=== PATIENT | male | born 1955 | race Caucasian/White ===

== ENCOUNTER 2018-06-16 15:05 | Inpatient (IN) | payer MEDICARE ==
[2018-06-16 15:44] VITALS: BP 144/71
[2018-06-16] MEDS ORDERED: Magnesium Hydroxide (MOM) 30 mL UDC PO PRN (16:04)
[2018-06-16 16:50] LABS: % BASOPHILS 3.5 % (0.0-2.0); % EOSINOPHILS 0.2 % (0.0-5.0); % LYMPHOCYTES 11.2 % (20.0-50.0); % NEUTROPHILS 81.1 % (40.0-80.0); BASOPHILE ABSOLUTE 0.3 Th/cumm (0-0.2); HEMATOCRIT 47.1 % (41.0-60); HEMOGLOBIN 15.9 gm/dL (12-16); MEAN CELL VOLUME 90.4 fl (80-99); MEAN CORPUSCULAR HEMOGLOBIN 30.4 pg (26.0-30.0); MEAN CORPUSCULAR HGB CONC 33.6 pg (28.0-36.0); MEAN PLATELET VOLUME 8.1 fl; MONOCYTE ABSOLUTE 0.4 Th/cmm (0.3-1.0); NEUTROPHILE ABSOLUTE 7.4 Th/cmm (1.8-8.0); PLATELET COUNT 225 Th/cmm (150-400); RED BLOOD COUNT 5.21 Mil/cmm (4.30-5.70); RED CELL DISTRIBUTION WIDTH 14.1 % (11.5-20.0); WHITE BLOOD COUNT 9.1 Th/cmm (4.8-10.8)
[2018-06-16 17:07] LABS: ALB/GLOB RATIO 1.4 (1.0-1.8); ALBUMIN 3.6 gm/dL (4.2-5.5); ALKALINE PHOSPHATASE 87 U/L (34-104); ANION GAP 11.2 (7.0-16.0); BILIRUBIN,TOTAL 1.1 mg/dL (0.3-1.0); BUN - UREA NITROGEN 15 mg/dL (7-25); CALCIUM SERUM 9.5 mg/dL (8.6-10.3); CARBON DIOXIDE 27.8 mEq/L (21.0-31.0); CHLORIDE 102 mEq/L (98-107); CREATININE - SERUM 0.8 mg/dL (0.7-1.3); GFR AFRICAN-AMERICAN > 60.0 ml/min (>90); GFR NON AFRICAN-AMERICAN > 60.0 ml/min; GLUCOSE 120 mg/dL (70-105); SGOT 35 U/L (13-39); SGPT/ALT 46 U/L (7-52); SODIUM SERUM 137 mEq/L (136-145); TOTAL PROTEIN,SERUM 6.2 gm/dL (6.0-8.3)
[2018-06-17] MEDS: Maalox 30 mL Cup PO PRN ×2 (00:20→17:58)
[2018-06-17] MEDS: Pantoprazole 40 mg/Packet PO SCH (06:42)
--- NOTE | 2018-06-17 08:22 | Diagnostic Imaging Report ---
Portable chest x-ray Time: 1640 History: Shortness of breath Allowing for portable technique the heart size is normal. There is a question of mild right basilar infiltrate. No hilar or mediastinal abnormalities. Bony thorax is intact. Impression: Question of mild right basilar infiltrate. Follow-up dictation recommended if clinically indicated.
[2018-06-17] MEDS: Amoxicillin/Clavulanat 875/125 Tab PO SCH ×2 (09:38→17:51)
[2018-06-17] MEDS: Multivitamin Tab PO SCH (09:38)
[2018-06-17] MEDS: Albuterol/Ipratropium Neb 3 ML AERS HHN PRN ×3 (10:22→19:15)
--- NOTE | 2018-06-17 12:04 | Psychiatric Evaluation ---
DATE OF SERVICE: 06/17/2018 JUSTIFICATION FOR HOSPITALIZATION: Suicidal attempt overdosed on copious amounts of medication in a suicide effort. CHIEF COMPLAINT: "I was not really suicidal, but I got close." HISTORY OF PRESENT ILLNESS: A 62-year-old male who I saw at [facility]. I placed him on a 14-day hold. He remained quite depressed, upset about the failure of his suicide attempt, irritable, upset, seeking Valium, seeking morphine. The patient notes he has been hopeless, helpless, despairing, very poor appetite, erratic sleep. Brother was very concerned about him because of his suicide effort. The patient thought that he could go home and felt okay to go home, but they were real and overt safety concerns. The patient also alluding to stressors involving his pain symptoms, arthritis, lack of stable housing. He stays with his brother. His left him in the past. He lost a lot of resources and finances in 2007 when he was living in [place] including his house "my favorite pet." PAST PSYCHIATRIC HISTORY: Seems he may have history of depression. FAMILY HISTORY: Noncontributory. SOCIAL HISTORY: The patient is living with brother, not currently . left him due to "marriage running its course." Under medical please see full H and P. MEDICATIONS: Noted. MENTAL STATUS EXAMINATION: Stated age, disheveled, unkempt, fair eye contact. Mood "not good." Affect withdrawn. Thought processes were linear. The patient is status post serious overdose effort. No HI. No psychotic symptoms. Insight and judgment diminished x 2. Poor impulse control. PROVISIONAL DIAGNOSES: Major depression, recurrent, severe, no psychosis. Under medical please see full H and P. ESTIMATED LENGTH OF STAY: 5-7 days. Functional impairments, he states he cannot see out of his right eye and suffers from pain, not giving me a pain scale just "lot of pain." ASSESSMENT: The patient is depressed, status post suicide effort, still feeling angry, upset, ongoing concerns with self harm, multiple risk factors including him being a white male now with a suicide history, unstable living environment, unstable finances. PLAN: We will initiate antidepressant medications. TREATMENT PLAN: Includes group as well as milieu therapy. The patient seeking Valium and morphine. It is unclear if he takes his medications regularly. CONDITIONS FOR DISCHARGE: Improved mood, improved affect, cessation of any SI. JOB# [id number]
[2018-06-18] MEDS: Pantoprazole 40 mg/Packet PO SCH (06:34)
[2018-06-18] MEDS: Albuterol/Ipratropium Neb 3 ML AERS HHN PRN ×3 (07:20→19:53)
--- NOTE | 2018-06-18 08:44 | Diagnostic Imaging Report ---
Ultrasound abdomen HISTORY: Abdominal pain history of cholecystectomy COMPARISON: CT abdomen and pelvis on 09/02/2015 Technique: Sonography of the abdomen was performed in multiple planes. FINDINGS: Exam is limited due to body habitus and bowel gas. The liver demonstrates a increased echotexture and measures 16.1 cm. No evidence of focal lesions. The patient is status post cholecystectomy. The CBD measures 2 mm. The right kidney measures 11.5 x 4.9 cm. Left kidney measures 10.0 x 5.3 cm. No evidence of focal lesions or hydronephrosis. Assessment of pancreas is limited due to bowel gas. The spleen measures 10.3 cm. No evidence of any aortic aneurysm. IMPRESSION: Limited exam due to body habitus and bowel gas. Increased echogenicity of the liver which may reflect underlying fatty infiltration. Evidence of prior cholecystectomy as demonstrated on previous CT examination.
[2018-06-18] MEDS: Amoxicillin/Clavulanat 875/125 Tab PO SCH ×2 (09:01→17:01)
[2018-06-18] MEDS: Multivitamin Tab PO SCH (09:02)
[2018-06-18] MEDS ORDERED: Probiotic Screen MC PRN (11:40)
[2018-06-18] MEDS: Lactobacillus Rhamnosus GG 15 Billion CFU CAP.SPRINK PO SCH (14:20)
--- NOTE | 2018-06-18 18:36 | Progress Notes ---
DATE: 06/18/2018 Case was discussed with staff of the patient, reviewed records. The patient is a 62-year-old male who has been my patient for the last 2 to 3 years as an outpatient. He apparently overdosed last week; however, he complained that he is not really suicidal. He did have poor attention. He was found in a hotel room. He said he made it happened, so they come and find him and rescue him; however, he was vomiting, so which may he took a good amount of medication. He continues to appear to be depressed. He told Dr. Ervin, he is upset of failure of the suicide attempt. He was taking Valium and morphine. He has been feeling hopeless and helpless, despairing with very poor appetite, erratic sleep. Apparently, his told him she ____ want to be , so that is when he lost his housing as he was living with her and he had to leave and was living at his brother's house ____ and felt like a burden and he has no money. The patient continues to be depressed, irritable. He is upset that he wants to be back on the Valium that he has been taking for 19 years. That is the only medication that make his muscle spasm go away and help with anxiety. He reports he is allergic to Ativan. The patient has been on the Remeron 15 mg at bedtime and at this point, Dr. Paz is reluctant to give him morphine or any opiate because of the overdose and I will be initiating Cymbalta on the patient to help with his depression and pain. The patient was very irritable when I talked to him, upset that he is not back on the morphine and Valium. I tried to explain to him the rationale that is dangerous when he overdose himself on medication and now this medication has been blamed for of many people and we do not want nothing that to happen to him, he was very irritable, does not seem to understand. I will be initiating Cymbalta on him. Discussed side effects and we will continue outpatient group therapy, milieu therapy, adjust the medication as needed. JOB# [id number]
--- NOTE | 2018-06-18 19:08 | History & Physical ---
ADMIT DATE: 06/17/2018 REASON FOR ADMISSION: Psychiatric disorder. HISTORY OF PRESENT ILLNESS: This is a 62-year-old with an underlying history of chronic pain syndrome, chronic low back pain, chronic neck pain, chronic smoker, and chronic anxiety, who overdosed on anxiolytics, [facility] and was treated and subsequently transferred here for further psychiatric care. The patient denies any fever, no chills, no cough, no nausea, no vomiting, no diarrhea. He was complaining of generalized abdominal pain. The patient has a prior history of cholecystectomy. PAST SURGICAL HISTORY: Cholecystectomy. FAMILY HISTORY: Noncontributory. SOCIAL HISTORY: Lives at home. No tobacco. Denies any alcohol or street drugs. CURRENT MEDICATIONS: As per medication reconciliation. ALLERGIES: Allergic to lorazepam. REVIEW OF SYSTEMS: Abdominal pain. Otherwise, 12-point review of systems was negative. PHYSICAL EXAMINATION: VITAL SIGNS: Temperature is 96.8, pulse 80 respirations 20, blood pressure 118/74, and 94% on room air. HEART: S1 and S2 normal. ABDOMEN: Soft, nontender. NEUROLOGIC: Follows commands. No focal deficit noted. EXTREMITIES: No edema. LABORATORIES: None available. ASSESSMENT: 1. Pneumonia. 2. Drug overdose. 3. Generalized abdominal pain. 4. Chronic low back pain. 5. Gastroesophageal reflux disease. 6. Mental health disorders. PLAN: Continue Augmentin with the DuoNeb as needed. Continue psychotropic medications. The patient will continue Protonix and tramadol as needed for pain. Discussed plan with nursing staff. JOB# [id number] [facility]
[2018-06-19] MEDS: Pantoprazole 40 mg/Packet PO SCH (06:38)
[2018-06-19] MEDS: Albuterol/Ipratropium Neb 3 ML AERS HHN PRN ×2 (06:52→13:55)
[2018-06-19] MEDS: Multivitamin Tab PO SCH (09:31)
[2018-06-19] MEDS: Amoxicillin/Clavulanat 875/125 Tab PO SCH ×2 (09:31→17:01)
[2018-06-19] MEDS: Lactobacillus Rhamnosus GG 15 Billion CFU CAP.SPRINK PO SCH (09:32)
--- NOTE | 2018-06-19 15:02 | Progress Notes ---
DATE: 06/19/2018 Case discussed with staff of the patient, reviewed records. The patient continues to isolate himself, appears to be depressed, continues to be overwhelmed. He is minimizing his suicide attempt that was very serious, I talked to Dr. Paz about him and he said he only give him tramadol for pain, Ultram as needed because of his overdose on morphine as well as Valium. The patient is not sleeping during the day and not sleeping during the night. I had discussed with him and he needs to sleep during the night, so his sleep cycle would go back to normal. He is also on amoxicillin. No side effects with the medication, no sedation or nausea. We will continue with the outpatient group therapy, milieu therapy, adjust the medication as needed. JOB# [id number]
[2018-06-20] MEDS: Pantoprazole 40 mg/Packet PO SCH (06:41)
[2018-06-20] MEDS: Albuterol/Ipratropium Neb 3 ML AERS HHN PRN (07:50)
[2018-06-20 07:55] LABS: CHOLESTEROL 141 mg/dL (<200); HDL -HIGH DENSITY LIPOPROTEIN 31 mg/dL (23-92); TRIGLYCERIDES 86 mg/dL (<150)
[2018-06-20] MEDS: Amoxicillin/Clavulanat 875/125 Tab PO SCH ×2 (09:26→16:52)
[2018-06-20] MEDS: Multivitamin Tab PO SCH (09:27)
[2018-06-20] MEDS: Lactobacillus Rhamnosus GG 15 Billion CFU CAP.SPRINK PO SCH (09:27)
--- NOTE | 2018-06-20 13:47 | Progress Notes ---
DATE: 06/20/2018 Case was discussed with staff of the patient, reviewed records. The patient continues to be depressed, continues to feel hopeless and helpless. He is denying that he was trying to harm himself. He reports it was mainly for attention though does not look like this. He is sleeping better, eating better. He reports he fell down as he was using his walker and apparently he lost his balance. I asked the staff to call the medical doctor to get him evaluated because of the fall. He is so far compliant with the medication with no side effects, no sedation, no nausea, no extrapyramidal symptoms. I will be increasing Cymbalta to 60 mg twice a day to also help with depression and pain and Dr. Paz want him to be on Ultram only, does not believe he needs to be back on the opiates since overdosing it. We will continue the patient in group therapy, milieu therapy, and adjust medications as needed. JOB# [id number]
[2018-06-21] MEDS: Pantoprazole 40 mg/Packet PO SCH (06:39)
[2018-06-21] MEDS: Albuterol/Ipratropium Neb 3 ML AERS HHN PRN (09:10)
[2018-06-21] MEDS: Lactobacillus Rhamnosus GG 15 Billion CFU CAP.SPRINK PO SCH (10:50)
[2018-06-21] MEDS: Amoxicillin/Clavulanat 875/125 Tab PO SCH ×2 (10:51→17:50)
[2018-06-21] MEDS: Multivitamin Tab PO SCH (10:51)
--- NOTE | 2018-06-22 03:19 | Progress Notes ---
DATE: SUBJECTIVE: The patient was seen and evaluated. The patient is a 62-year-old male, who attempted suicide by overdosing on copious amounts of medications. Today on sira-lu-pdyu evaluation, the patient reported been feeling sad, depressed, nothing going his way, and he feels distraught. MENTAL STATUS EXAMINATION: Sad, depressed, and disengaged. Although eating and sleeping better, medical evaluation pending secondary to his weakness. CURRENT MEDICATIONS: Reviewed which includes Cymbalta up to 60 mg p.o. b.i.d. which was recently augmented and increased yesterday, gabapentin 300 mg p.o. t.i.d., , Remeron 50 mg, tramadol, and trazodone. ASSESSMENT AND PLAN: Due to the patient's still active, distraught, overwhelmed, stating serious suicide attempt, he is unable to formulate a safe plan. We will continue reaching a steady state as medications were recently increased. [facility]# [id number]
[2018-06-22] MEDS: Pantoprazole 40 mg/Packet PO SCH (06:32)
[2018-06-22] MEDS: Amoxicillin/Clavulanat 875/125 Tab PO SCH ×2 (09:46→17:19)
[2018-06-22] MEDS: Lactobacillus Rhamnosus GG 15 Billion CFU CAP.SPRINK PO SCH (09:46)
[2018-06-22] MEDS: Multivitamin Tab PO SCH (09:46)
--- NOTE | 2018-06-22 16:53 | General Progress Note ---
Subjective - Review of Systems Service Date: 06/22/18 Subjective: Patient seen and examined feels better denied any complaints Objective - Results Result Diagrams: 06/16/18 16:30 06/16/18 16:30 Recent Labs: Laboratory Last Values WBC 9.1 Th/cmm (4.8-10.8) 06/16/18 16:30 RBC 5.21 Mil/cmm (4.30-5.70) 06/16/18 16:30 Hgb 15.9 gm/dL (12-16) 06/16/18 16:30 Hct 47.1 % (41.0-60) 06/16/18 16:30 MCV 90.4 fl (80-99) 06/16/18 16:30 MCH 30.4 pg (26.0-30.0) H 06/16/18 16:30 MCHC Differential 33.6 pg (28.0-36.0) 06/16/18 16:30 RDW 14.1 % (11.5-20.0) 06/16/18 16:30 Plt Count 225 Th/cmm (150-400) 06/16/18 16:30 MPV 8.1 fl 06/16/18 16:30 Neutrophils % 81.1 % (40.0-80.0) H 06/16/18 16:30 Lymphocytes % 11.2 % (20.0-50.0) L 06/16/18 16:30 Monocytes % 4.0 % (2.0-10.0) 06/16/18 16:30 Eosinophils % 0.2 % (0.0-5.0) 06/16/18 16:30 Basophils % 3.5 % (0.0-2.0) H 06/16/18 16:30 Sodium 137 mEq/L (136-145) 06/16/18 16:30 Potassium 4.0 mEq/L (3.5-5.1) 06/16/18 16:30 Chloride 102 mEq/L (98-107) 06/16/18 16:30 Carbon Dioxide 27.8 mEq/L (21.0-31.0) 06/16/18 16:30 Anion Gap 11.2 (7.0-16.0) 06/16/18 16:30 BUN 15 mg/dL (7-25) 06/16/18 16:30 Creatinine 0.8 mg/dL (0.7-1.3) 06/16/18 16:30 Est GFR ( Amer) > 60.0 ml/min (>90) 06/16/18 16:30 Est GFR (Non-Af Amer) > 60.0 ml/min 06/16/18 16:30 BUN/Creatinine Ratio 18.8 06/16/18 16:30 Glucose 120 mg/dL (70-105) H 06/16/18 16:30 Calcium 9.5 mg/dL (8.6-10.3) 06/16/18 16:30 Total Bilirubin 1.1 mg/dL (0.3-1.0) H 06/16/18 16:30 AST 35 U/L (13-39) 06/16/18 16:30 ALT 46 U/L (7-52) 06/16/18 16:30 Alkaline Phosphatase 87 U/L (34-104) 06/16/18 16:30 Total Protein 6.2 gm/dL (6.0-8.3) 06/16/18 16:30 Albumin 3.6 gm/dL (4.2-5.5) L 06/16/18 16:30 Globulin 2.6 gm/dL 06/16/18 16:30 Albumin/Globulin Ratio 1.4 (1.0-1.8) 06/16/18 16:30 Triglycerides 86 mg/dL (<150) 06/20/18 06:36 Cholesterol 141 mg/dL (<200) 06/20/18 06:36 LDL Cholesterol Direct 98 mg/dL (75-193) 06/20/18 06:36 HDL Cholesterol 31 mg/dL (23-92) 06/20/18 06:36 RPR NONREACTIVE (NONREACTIVE) 06/16/18 16:30 - Physical Exam Vitals and I&O: Vital Signs Temp 98.8 F 06/22/18 16:12 Pulse 70 06/22/18 16:12 Resp 20 06/22/18 16:12 BP 111/69 06/22/18 16:12 Pulse Ox 98 06/22/18 16:12 Intake & Output 06/21/18 06/22/18 06/22/18 18:59 06:59 18:59 Intake Total 500 Balance 500 Intake: Oral 500 Other: # Voids 4 # Bowel Movements 1 Active Medications: Current Medications Acetaminophen (Tylenol) 650 mg PO Q4HR PRN PRN Reason: Mild Pain / Temp above 100 Stop: 08/15/18 16:03 Last Admin: 06/17/18 21:51 Dose: 650 mg Al Hydrox/Mg Hydrox/Simethicone (Maalox) 30 ml PO Q4HR PRN PRN Reason: GI DISTRESS Stop: 08/15/18 16:03 Last Admin: 06/17/18 17:58 Dose: 30 ml Albuterol/Ipratropium (Duoneb Neb) 3 ml HHN TIDRT PRN PRN Reason: COPD Stop: 08/15/18 18:49 Last Admin: 06/21/18 09:10 Dose: 3 ml Amoxicillin/Clavulanate Potassium (Augmentin 875-125mg) 1 tab PO BID CASSIE Stop: 06/24/18 08:59 Last Admin: 06/22/18 09:46 Dose: 1 tab Duloxetine HCl (Cymbalta) 60 mg PO BID [facility]; Protocol Stop: 08/19/18 16:59 Last Admin: 06/22/18 09:46 Dose: 60 mg Gabapentin (Neurontin) 300 mg PO TID CASSIE Stop: 08/16/18 22:14 Last Admin: 06/22/18 14:39 Dose: 300 mg Hydroxyzine Pamoate (Vistaril) 50 mg PO Q4HR PRN; Protocol PRN Reason: Anxiety Stop: 08/16/18 22:05 Last Admin: 06/22/18 09:46 Dose: 50 mg Lactobacillus Rhamnosus (Culturelle 15b) 1 each PO DAILY CASSIE Stop: 08/17/18 13:59 Last Admin: 06/22/18 09:46 Dose: 1 each Magnesium Hydroxide (Milk Of Magnesia) 30 ml PO HS PRN PRN Reason: Constipation Mirtazapine (Remeron) 15 mg PO HS CASSIE; Protocol Stop: 08/16/18 20:59 Last Admin: 06/21/18 21:25 Dose: 15 mg Miscellaneous (Probiotic Screen) 1 ea MC PRN PRN PRN Reason: PROTOCOL Stop: 08/17/18 11:39 Multivitamins/Vitamin C (Theragran) 1 tab PO DAILY CASSIE Stop: 08/16/18 08:59 Last Admin: 06/22/18 09:46 Dose: 1 tab Pantoprazole Sodium (Protonix) 40 mg PO QDAC CASSIE Stop: 08/16/18 07:29 Last Admin: 06/22/18 06:32 Dose: 40 mg Tramadol HCl (Ultram) 50 mg PO Q6HR PRN PRN Reason: Moderate Pain Stop: 08/16/18 06:42 Last Admin: 06/22/18 09:46 Dose: 50 mg Trazodone HCl (Desyrel) 50 mg PO HS PRN; Protocol PRN Reason: Insomnia Stop: 08/17/18 20:59 Last Admin: 06/21/18 23:53 Dose: 50 mg Cardiovascular: Regular rate Lungs: Clear to auscultation Assessment/Plan - Assessment Assessment: Nicotine dependancy Chronic pain syndrome Mental health disorder - Plan Plan: Smoking cessation advised Continue cymbalta and tramadol Psych follow up Nutritional Asmnt/Malnutr-PDOC - Dietary Evaluation Malnutrition Findings (Please click <Entered> for more info): Nutritional Asmnt/Malnutrition Start: 06/19/18 14: 22 Text: Status: Complete Freq: Protocol: Document 06/19/18 14:22 LCHENG (Rec: 06/19/18 14:33 LCHENG [email or web address]) Nutritional Asmnt/Malnutrition Patient General Information Nutritional Screening Moderate Risk Diagnosis psychosis Pertinent Medical Hx/Surgical Hx chelecystectomy, chronic pain syndrome, chronic low back pain, chronic neck pain, chronic smoker, chronic anxiety Subjective Information Pt seen lying in bed at time of visit, complained food and did not want to eat. per EMR, PO intake 100%. Current Diet Order/ Nutrition Support low sodium,low cholesterol Pertinent Medications culturelle, remeron, theragran , protonix, Pertinent Labs 06/16 glucose 120, alb 3.6 Nutritional Hx/Data Height 1.78 m Height (Calculated Centimeters) 177.8 Current Weight (lbs) 83.915 kg Weight (Calculated Kilograms) 83.9 Weight (Calculated Grams) 39982.6 [place] Body Weight 166 Body Mass Index (BMI) 26.5 Weight Status Overweight GI Symptoms GI Symptoms None Last BM 06/19 Difficult in: None Skin Integrity/Comment: diego 22, no skin problem Current %PO Good (75-100%) Estimated Nutritional Goals BEE in Kcals: Using Current wt Calories/Kcals/Kg 23-27 Kcals Calculated 2313-7786 Protein: Using Current wt Protein g/k.8-1 Protein Calculated 67-84 Fluid: ml 1932-2268ml (1ml/kcal) Nutritional Problem No current Nutrition Prob Problem N/A Malnutrition Alert Is there a minimum of two criteria No selected? Query Text:Check all the applicable criteria. A minimum of two criteria are recommended for diagnosis of either severe or non-severe malnutrition. Malnutrition Related to Morbid Obesity Malnutrition related to morbid obesity No Intervention/Recommendation Comments 1. Continue with current diet as ordered. 2. Monitor PO intake, wt, labs and skin integrity 3. F/U as low risk in 7 days, 06/28 Expected Outcomes/Goals Expected Outcomes/Goals 1. PO intake to meet at least 75% of nutritional needs. 2. Wt stability, skin to remain intact, labs to approach WNL.
--- NOTE | 2018-06-22 22:12 | Progress Notes ---
DATE: 06/22/2018 SUBJECTIVE: The patient was seen and evaluated. The patient's chart reviewed. IDENTIFYING DATA: A 62-year-old male. Today, he reported his mood is still very down, depressed. MENTAL STATUS EXAMINATION: Depressed, sad, disengaged, ambivalence about his safety. ASSESSMENT AND PLAN: Still continues to feel distraught, overwhelmed, continues to be high risk, especially with his recent valiant suicide attempt. We will continue monitoring and evaluating. JOB# [id number]
[2018-06-23] MEDS: Pantoprazole 40 mg/Packet PO SCH (06:36)
[2018-06-23] MEDS: Multivitamin Tab PO SCH (09:28)
[2018-06-23] MEDS: Lactobacillus Rhamnosus GG 15 Billion CFU CAP.SPRINK PO SCH (09:28)
[2018-06-23] MEDS: Albuterol/Ipratropium Neb 3 ML AERS HHN PRN (19:55)
--- NOTE | 2018-06-23 22:08 | Progress Notes ---
DATE: 06/23/2018 Case was discussed with staff of the patient, reviewed records. The patient was confused last night because of his roommate is very destructive and sleep all night was making noises all night through and this happens every day. The patient reports that he feels that he can handle it. Started all the duloxetine in the morning, he also reports that his blood pressure has been low and get the staff to call the medical doctor about that and he is also recovering from infection. He continues to have poor appetite and he continues to be overwhelmed. He is trying to minimize the events that his suicide attempt was for attention though it was not. It did not look that way at least when the family described to me and we will continue the patient in group therapy, milieu therapy, adjust medication as needed. JOB# [id number]
[2018-06-24] MEDS: Pantoprazole 40 mg/Packet PO SCH (06:36)
[2018-06-24] MEDS: Lactobacillus Rhamnosus GG 15 Billion CFU CAP.SPRINK PO SCH (08:47)
[2018-06-24] MEDS: Multivitamin Tab PO SCH (08:47)
[2018-06-24] MEDS: Albuterol/Ipratropium Neb 3 ML AERS HHN PRN (13:53)
--- NOTE | 2018-06-24 17:18 | Progress Notes ---
DATE: 06/24/2018 PROGRESS ON THE UNIT: Case was discussed with staff of the patient, reviewed records. The patient slept better last night. The patient's blood pressure is still low at 100/70 and medical doctor is taking care of him. He continues to have multiple somatic complaints. He continues to be overwhelmed. He slept a little bit better yesterday, eating better, working also on discharge plan. No side effects with the medication, no sedation, no nausea. PLAN: We will continue to work with the patient in group therapy and milieu therapy, adjust the medications as needed. JOB# [id number]
[2018-06-25] MEDS: Pantoprazole 40 mg/Packet PO SCH (06:32)
[2018-06-25] MEDS: Lactobacillus Rhamnosus GG 15 Billion CFU CAP.SPRINK PO SCH (09:29)
[2018-06-25] MEDS: Multivitamin Tab PO SCH (09:29)
[2018-06-25] MEDS ORDERED: Pantoprazole 40 mg/Packet PO ONE (10:19)
[2018-06-26] MEDS: Pantoprazole 40 mg/Packet PO SCH (06:30)
[2018-06-26] MEDS: Albuterol/Ipratropium Neb 3 ML AERS HHN PRN (07:19)
[2018-06-26] MEDS: Lactobacillus Rhamnosus GG 15 Billion CFU CAP.SPRINK PO SCH (08:07)
[2018-06-26] MEDS: Multivitamin Tab PO SCH (08:07)
--- NOTE | 2018-06-26 16:43 | Progress Notes ---
DATE: 06/26/2018 Case was discussed with staff of the patient, reviewed records. The patient still has not slept well in the last 2 nights. The patient's depression seems to be showing progress. He is eating better. He is getting shaved. I will be increasing his trazodone to 100 mg at bedtime and also he has been sleeping during the day and advised him not sleep a day as medications not going to work if he is sleeping the whole day and start side effects of the trazodone including priapism and if there is any erection lasting long he should stop the medication, so he does not become impotent and so far no side effects of the medication, no sedation, no nausea and we will continue to work with the patient in group therapy, milieu therapy, adjust medication as needed. JOB# [id number]
[2018-06-27] MEDS: Pantoprazole 40 mg/Packet PO SCH (06:41)
[2018-06-27] MEDS: Lactobacillus Rhamnosus GG 15 Billion CFU CAP.SPRINK PO SCH (08:36)
[2018-06-27] MEDS: Multivitamin Tab PO SCH (08:36)
[2018-06-27] MEDS: Albuterol/Ipratropium Neb 3 ML AERS HHN PRN (19:31)
--- NOTE | 2018-06-27 21:14 | Progress Notes ---
DATE: 06/27/2018 Case was discussed with staff of the patient, reviewed records. The patient reports he is not sleeping well despite him not sleeping during the day yesterday. He continues to be easily overwhelmed, continues to be depressed; however, he is currently minimizing any current intent to harm himself or anybody. He is not sleeping well. I have him take trazodone yesterday and he report that despite that he only got 2-3 hours; however, at the same time seemed like his roommate was very loud and it was very chaotic on the unit yesterday, so he cannot sleep well. I asked the staff to move his roommate to make sure the patient sleeps well and no side effects with the medication, no sedation, no nausea and we will continue to work with the patient in group therapy, milieu therapy, and adjust the medication as needed. JOB# [id number]
[2018-06-28] MEDS: Pantoprazole 40 mg/Packet PO SCH (06:40)
[2018-06-28] MEDS: Albuterol/Ipratropium Neb 3 ML AERS HHN PRN ×2 (07:23→13:06)
[2018-06-28] MEDS: Multivitamin Tab PO SCH (08:44)
[2018-06-28] MEDS: Lactobacillus Rhamnosus GG 15 Billion CFU CAP.SPRINK PO SCH (08:44)
--- NOTE | 2018-06-29 04:21 | Progress Notes ---
DATE: 06/28/2018 SUBJECTIVE: The patient was seen and evaluated. The patient's chart reviewed. Covering for Dr. Bello. SUBJECTIVE: The patient continues to report that he was slightly overwhelmed and continues to be depressed. Today on [id number] evaluation, the patient continues to minimize ____ withdrawn overwhelmed. ASSESSMENT AND PLAN: The patient with a history of severe depression, status post suicide attempt, continued to feel withdrawn, disengaged and able to perform a safe plan outside, structured environment. We will continue working very closely with mental briefcase sewer and continue with primary psychiatric treatment plan and goals with the current medications. He is able to tolerate uncomplicated. JOB# [id number]
[2018-06-29] MEDS: Pantoprazole 40 mg/Packet PO SCH (06:45)
[2018-06-29] MEDS: Lactobacillus Rhamnosus GG 15 Billion CFU CAP.SPRINK PO SCH (09:10)
[2018-06-29] MEDS: Multivitamin Tab PO SCH (09:10)
--- NOTE | 2018-06-30 01:47 | Progress Notes ---
DATE: 06/29/2018 SUBJECTIVE: The patient was seen and evaluated. Covering for Dr. Bello. Today on vowz-wk-ucry evaluation, the patient continues to present sad and withdrawn. No side effects to medication. MENTAL STATUS EXAMINATION: Withdrawn, disengaged, sad. ASSESSMENT AND PLAN: History of severe depression, disengaged, withdrawn, unable to formulate safe structure. We will continue working very closely with the transplant case manager and also primary psychiatrist's treatment plan and goals to target the patient's severe depression with the current medication regimen, which he did tolerate without complications. JOB# [id number]
[2018-06-30] MEDS: Pantoprazole 40 mg/Packet PO SCH (06:34)
[2018-06-30] MEDS: Multivitamin Tab PO SCH (09:07)
[2018-06-30] MEDS: Lactobacillus Rhamnosus GG 15 Billion CFU CAP.SPRINK PO SCH (09:07)
--- NOTE | 2018-06-30 20:48 | Progress Notes ---
DATE: 06/30/2018 Case was discussed with staff of the patient, reviewed records. The patient reports he is still not sleeping well and only slept 4 hours last night. Working on discharge plan as well; though, the patient so far is on trazodone for sleep. I will be increasing the dose to help him sleep better. I will be increasing his dose to 200 mg at bedtime. We will continue to work with the patient in group therapy, milieu therapy, and adjust the medications as needed. JOB# [id number]
[2018-07-01] MEDS: Pantoprazole 40 mg/Packet PO SCH (06:39)
[2018-07-01] MEDS: Multivitamin Tab PO SCH (09:01)
[2018-07-01] MEDS: Lactobacillus Rhamnosus GG 15 Billion CFU CAP.SPRINK PO SCH (09:02)
--- NOTE | 2018-07-01 12:13 | Discharge Summary ---
DATE OF DISCHARGE: 07/01/2018 IDENTIFYING INFORMATION: The patient is a 62-year-old male. CHIEF COMPLAINT: The patient overdosed on his medications. HISTORY OF PRESENT ILLNESS: Transferred from [facility]. He was found with vomiting in a hotel room by his family and they were sent to [facility], was seen by Dr. Ervin, who transferred him here. The patient is ____ a long time for depression. The patient has no prior suicide attempt. COURSE IN THE HOSPITAL: The patient was taken off Valium and opiate that he overdosed on. I put him on Cymbalta, increased the dose to 120 mg daily, also on Neurontin 300 mg 3 times a day and Remeron 50 mg at bedtime. The patient was given tramadol for his pain. The patient did very well, progressively got better. He is denying that this was a suicide attempt. He was also not sleeping well, so I added trazodone, increased the dose to 200 mg at bedtime. So as he improved, he was no longer suicidal. He was sleeping well and eating well. The patient was discharged to [facility], which is a rehab facility. FINAL DIAGNOSIS: AXIS I: Major depression, recurrent, severe with no psychosis. MEDICAL DIAGNOSES: 1. Status post overdose. 2. Chronic pain. 3. Status post pneumonia. 4. Gastroesophageal reflux disease. The patient will be ____ Post-Acute. Follow up with the psychiatrist, primary care physician and therapist. EXPECTED OUTCOME: Stable if the patient complies with the above. [facility]# [id number]
== END 2018-07-01 17:00 | DRG 885 ==
LOC: GERO2 15:05
PROVIDERS: ADMIT Psychiatry & Neurology Psychiatry; ATTEND Psychiatry & Neurology Psychiatry
DX: F33.2 Major depressive disorder, recurrent severe without psychotic features (principal); J18.9 Pneumonia, unspecified organism; M19.90 Unspecified osteoarthritis, unspecified site; G89.4 Chronic pain syndrome; M54.5 Low back pain; F17.210 Nicotine dependence, cigarettes, uncomplicated; F41.9 Anxiety disorder, unspecified; R10.9 Unspecified abdominal pain; K21.9 Gastro-esophageal reflux disease without esophagitis; Z90.49 Acquired absence of other specified parts of digestive tract
CPT/HCPCS: 36415-UA; 71045-TC; 76700-TC; 80053-TC; 80061-TC; 83036-90; 85025-TC; 86592-TC; 93005; 94640; 94760; Q0177; Z7610